=== PATIENT | female | born 1950 | race Two or more races ===

== ENCOUNTER → 2018-05-27 | Outpatient (CLI) | payer OTHER ==
--- NOTE | 2018-05-27 15:25 | RADRPT ---
PROCEDURE: XR Knees. CLINICAL INDICATION: Bilateral knee pain. TECHNIQUE: Total of eight views. Weightbearing frontal, oblique, and lateral views of the both kne es. Patellar views of both knees. COMPARISON: No prior study is available for comparison. FINDINGS: There is no fracture or dislocation. The soft tissues are normal. There are degenerative changes with osteophytes arising from all 3 joint compartment margins bilatera lly. There is bilateral medial joint compartment narrowing and subarticular sclerosis. There is no lytic or blastic lesion. There is no radiopaque foreign body. IMPRESSION: 1. Moderate degenerative changes of both knees. 2. Otherwise unremarkable bilateral knee x-ray series. RPTAT: QQ .Mika Breaux MD, MD Date Time Electronically viewed and signed by .Mika Breaux MD, on 05/27/2018 15:25 .R/
--- NOTE | 2018-05-27 18:08 | HKNOTE ---
DATE OF SERVICE: 05/27/2018 CHIEF COMPLAINT: Bilateral knee pain. HISTORY OF PRESENT ILLNESS: Ms. Mejía is a 68-year-old female who is previously seen in my [facility]. She is complaining of severe bilateral knee pain. She says that the pain is constant. There are no alleviating factors. She is taking tramadol, [place], Percocet and OxyContin [facility] for pain relief. She is using a knee brace. She has had previous bilateral kn ee viscosupplementation, steroid injections without pain relief. PHYSICAL EXAMINATION: Gait: Antalgic gait, reciprocal gait pattern. Right knee: Varus alignment. Tender over the medial joint line, 0 to 120 degrees range of motion, s table to varus valgus stress, negative Lamberto, negative anterior drawer, negative posterior drawer, negative Charan's. Left knee: Varus alignment. Tender over the medial joint line, 0 to 120 degrees range of motion, st able to varus valgus stress, negative Lamberto, negative anterior drawer, negative posterior drawer, n egative Charan's. DIAGNOSTIC DATA: X-rays of right knee: Three views of the right knee taken in the office today demo nstrate tricompartmental degenerative changes with loss of joint space of the medial compartment with lcyh-dk-cawe contact. There are peripheral osteophytes, subchondral sclerosis. No fractures or dis locations. X-rays of left knee: Three views of the right knee taken in the office today demonstrate tricompartmental degenerative changes with loss of joint space of the medial compartment with bone-o n-bone contact. There are peripheral osteophytes, subchondral sclerosis. No fractures or dislocatio ns. IMPRESSION: A 68-year-old female with bilateral knee osteoarthritis. PLAN: I discussed treatment options with the patient. I explained to her that she has failed previo us conservative treatment. She would like to think about surgical intervention. I discussed surgica l options including bilateral total knee arthroplasty. If the patient would like to proceed with zander miranda in the future, she will call to make an appointment. At that time, we will request authorizatio n for MRI of bilateral knees with VISIONAIRE protocol as well as bilateral hip to ankle x-rays. She does not require pain medications today. Dictated By: AYDIN POTTER/ELBA Conf#: [id number] [facility]#: [id number]
== END | disposition home or self-care (01) ==
LOC: HKI 13:32
PROVIDERS: ATTEND Orthopaedic Surgery Adult Reconstructive Orthopaedic Surgery
DX: M17.0 Bilateral primary osteoarthritis of knee (principal)
CPT/HCPCS: 73564; Z7500; G0463